=== PATIENT | female | born 1970 | race Hispanic/Latino ===

== ENCOUNTER → 2019-08-03 | Outpatient (CLI) | payer OTHER ==
[~2019-08-03] MED LIST: ATORVASTATIN CA10 MG PO; FAMOTIDINE20 MG PO; GLIMEPIRIDE2 MG PO; LEVOTHYROXINE75 MCG PO; LISINOPRIL-HCT1 EACH PO; jardiance PO
--- NOTE | 2019-08-03 14:21 | Diagnostic Imaging Report ---
EXAM: CT right foot WITHOUT contrast INDICATION: Pain. Fracture. Diabetes. Decreased range of motion. COMPARISON: None. TECHNIQUE: Pelvis were scanned utilizing a multidetector helical scanner from the iliac crest to the pubic symphysis without administration of IV contrast. Coronal and sagittal reformations were obtained. Routine protocol was performed. IV CONTRAST: None ORAL CONTRAST: None COMPLICATIONS: None RADIATION DOSE: Total DLP: 126.42 mGy*cm Estimated effective dose: (DLP x 0.015 x size factor) mSv CTDIvol has been reviewed. It is below the limits set by the Radiation Protocol Committee (RPC). Dose modulation, iterative reconstruction, and/or weight based adjustment of the mA/kV was utilized to reduce the radiation dose to as low as reasonably achievable. FINDINGS: Comminuted displaced intra-articular distal lateral cuboid bone fragment with several adjacent small bone fragments and soft tissue swelling. Comminuted intra-articular fracture involving the proximal fourth metatarsal with several adjacent small bone fragments and soft tissue swelling. Small avulsion-type fracture at the anterior dorsal aspect of the calcaneus best seen on sagittal reformatted image 22 and 23. Small posterior calcaneal bone spur. Small accessory navicular bone. Scattered degenerative change. No osseous erosion. No talar dome osteochondral lesion. Bipartite tibial sesamoid bone at the first metatarsophalangeal joint Moderate soft tissue edema about the foot. No radiopaque foreign body. Impression: Comminuted displaced intra-articular distal lateral cuboid bone fragment with several adjacent small bone fragments and soft tissue swelling. Comminuted intra-articular fracture involving the proximal fourth metatarsal with several adjacent small bone fragments and soft tissue swelling. Small avulsion-type fracture at the anterior dorsal aspect of the calcaneus Signed by: Dr. Michoacano Jordan M.D. on 08/03/2019 12:48 PM
== END ==
LOC: CT 11:35
PROVIDERS: ATTEND Podiatrist Foot & Ankle Surgery
DX: S92.341A Displaced fracture of fourth metatarsal bone, right foot, initial encounter for closed fracture (principal)

== ENCOUNTER 2019-08-08 20:26 | Emergency (ER) | payer OTHER ==
[~2019-08-08] VITALS: Ht 157.5 cm; Wt 99.8 kg
[2019-08-09] MEDS ORDERED: LISINOPRIL-HCT1 EACH PO (10:17)
[2019-08-09] MEDS ORDERED: GLIMEPIRIDE2 MG PO (10:18)
[2019-08-09] MEDS ORDERED: FAMOTIDINE20 MG PO (10:18)
[2019-08-09] MEDS ORDERED: LEVOTHYROXINE75 MCG PO (10:18)
[2019-08-09] MEDS ORDERED: ATORVASTATIN CA10 MG PO (10:19)
[2019-08-09] MEDS ORDERED: jardiance PO (10:19)
== END 2019-08-08 21:30 | disposition left against medical advice (07) ==
LOC: ER 20:26
DX: M79.671 Pain in right foot (principal)

== ENCOUNTER → 2019-08-10 | Day surgery (SDC) | payer OTHER ==
[2019-08-09 16:35] LABS: ANION GAP 13.7 mmol/L (8-16); BLOOD UREA NITROGEN 13 mg/dL (7-26); BUN/CREATININE RATIO 15 (6-25); CALCIUM 9.2 mg/dL (8.4-10.2); CARBON DIOXIDE 27 mmol/L (22-29); CHLORIDE 97 mmol/L (98-107); CREATININE, SERUM 0.87 mg/dL (0.57-1.11); EST GLOMERULAR FILTRATION RATE > 60 ML/MIN (60-); GLUCOSE 154 mg/dL (74-118); POTASSIUM 3.7 mmol/L (3.5-5.1); SODIUM 134 mmol/L (136-145)
[~2019-08-10] MED LIST changes: +BUPIVACAINE HCL 0.5% INJ 30 ML VIAL INJ ONE; +CLINDAMYCIN PHOS 900MG/ 50ML 50 ML IV ONE; +DEXAMETHASONE SOD PHOS INJ 4 MG/ML VIAL ONE; +FENTANYL CITRATE/PF 100MCG/2 ML INJ ONE; +HYDROMORPHONE 1MG/1ML INJ ONE; +HYDROMORPHONE 2MG/ML 2 MG/ML ML ONE; +IBUPROFEN 800MG/ 250ML 250 ML IV ONE; +KETOROLAC TROMETHAMINE 30 MG/ML VIAL ONE; +LIDOCAINE HCL 2% LOCAL INJ 5 ML SDV VIAL INJ ONE; +MIDAZOLAM HCL 2 MG/2 ML VIAL ONE; +ONDANSETRON HCL INJ 2MG/ML 2ML 2 MG/ML VIAL ONE; +PROPOFOL IV EMULSION 10 MG/ML 20 ML VIAL ONE; +SEVOFLURANE INHAL SOLN 250 ML PEN BTL ONE
--- OUTSIDE RECORDS SUMMARY | 2019-08-10 05:28 | XMS REPORT ---
Author [facility] Address Unknown Phone Unavailable Care Team Providers Care Flumer Name Role Phone Melissa ALBRECHT Unavailable Unavailable Payers Payer Name Policy Type Policy Number Effective Date Expiration Date Problems This patient has no known problems. Allergies, Adverse Reactions, Alerts Allergy Name Allergy Type Status Severity Reaction(s) Onset Date Inactive Date Treating Clinician Comments clavulanic acid DA Active U 2019-07-31 00:00:00 amoxicillin DA Active U 2019-07-31 00:00:00 Medications This patient has no known medications. Results Test Description Test Time Test Comments Text Results Atomic Results Result Comments CT FOOT RIGHT WO 2019-08-03 12:43:00 [place] [address] Patient Name: GINETTE MORRELL MR #: [id number] : 1970 Age/Sex: 49/F Req #: [id number] Adm Physician: Ordered by: Melissa ALBRECHT DPM Report #: [id number] Location: CT Room/Bed: Procedure: CT/CT FOOT RIGHT WO Exam Date: 08/03/19 Exam Time: 1220 REPORT STATUS: Signed EXAM: CT right foot WITHOUT contrast INDICATION: Pain. Fracture. Diabetes. Decreased range of motion. COMPARISON: None. TECHNIQUE: Pelvis were scanned utilizing a multidetector helical scanner from the iliac crest to the pubic symphysis without administration of IV contrast. Coronal and sagittal reformations were obtained. Routine protocol was performed. IV CONTRAST: None ORAL CONTRAST: None COMPLICATIONS: None RADIATION DOSE: Total DLP: 126.42 mGy*cm Estimated effective dose: (DLP x 0.015 x size factor) mSv CTDIvol has been reviewed. It is below the limits set by the Radiation Protocol Committee (RPC). Dose modulation, iterative reconstruction, and/or weight based adjustment of the mA/kV was utilized to reduce the radiation dose to as low as reasonably achievable. FINDINGS: Comminuted displaced intra- articular distal lateral cuboid bone fragment with several adjacent small bone fragments and soft tissue swelling. Comminuted intra-articular fracture involving the proximal fourth metatarsal with several adjacent small bone fragments and soft tissue swelling. Small avulsion-type fracture at the anterior dorsal aspect of the calcaneus best seen on sagittal reformatted image 22 and 23. Small posterior calcaneal bone spur. Small accessory navicular bone. Scattered degenerative change. No osseous erosion. No talar dome osteochondral lesion. Bipartite tibial sesamoid bone at the first metatarsophalangeal joint Moderate soft tissue edema about the foot. No radiopaque foreign body. Impression: Comminuted displaced intra- articular distal lateral cuboid bone fragment with several adjacent small bone fragments and soft tissue swelling. Comminuted intra-articular fracture involving the proximal fourth metatarsal with several adjacent small bone fragments and soft tissue swelling. Small avulsion-type fracture at the anterior dorsal aspect of the calcaneus Signed by: Dr. Michoacano Jordan M.D. on 08/03/2019 12:48 PM Dictated By: MICHOACANO JORDAN MD, MD 1248 Transcribed By: SAIRA on 08/03/19 1248 COPY TO: Melissa ALBRECHT DPM - XR FOOT 3 + V RT 2019-07-31 18:48:00 [facility] 1970 Age/S:49 /F [address] [facility] Unit#:[id number] Loc: [place] [address] Phys: Kiley Cardenas CRYOGENICS ENGINEER Dis Date: PHONE #: [phone] Status: REG ER FAX #: [phone] Exam Date: 07/31/2019 Reason: injury EXAMS: CPT CODE: [id number] XR FOOT 3 + V RT [address]22 CLINICAL HISTORY: injury TECHNIQUE: AP, oblique, and lateral views of the right foot COMPARISON: None FINDINGS: Nondisplaced oblique fracture through the proximal shaft of the fourth metatarsal. No intra-articular extension. Are also minimally displaced fractures involving the cuboid and lateral cuneiform that are appreciated best on the oblique radiograph. The remaining bones are unremarkable. IMPRESSION: Nondisplaced oblique fracture involving the proximal shaft of the fourth metatarsal and the right foot without intra-articular extension. Minimally displaced fractures of the lateral cuneiform and the cuboid. at 1848 Reported and signed by: Lance Dean MD CC: Kiley Cardenas NP Technologist: Anel Ayala RT(R)(CT) [facility] Data: 07/31/2019 (1847) [email or web address] Orig Print D/T: S: 07/31/2019 (5927) PAGE 1 Signed Report - XR TIBIA/FIBULA 2 V RT 2019-07-31 18:45:00 Name: GINETTE MORRELL : 1970 Age/S:49 /F [address] [facility] Unit#:[id number] Loc: [place] [address] Phys: Kiley Cardenas CRYOGENICS ENGINEER Dis Date: PHONE #: [phone] Status: REG ER FAX #: [phone] Exam Date: 07/31/2019 Reason: injury EXAMS: CPT CODE: [id number] XR TIBIA/FIBULA 2 V RT [address] CLINICAL HISTORY: injury TECHNIQUE: AP and lateral views of the right tibia/fibula COMPARISON: None FINDINGS: No acute fracture. Bony trabecular pattern is unremarkable. No cortical destruction or periosteal reaction. Knee and ankle joints do not appear dislocated. There appears to be swelling of the soft tissues overlying Hoffa's fat pad. Small patellar osteophyte is present. IMPRESSION: Soft tissue swelling overlying Hoffa's fat pad. Minimal degenerative changes of the right knee. Radiographically unremarkable right tibia and fibula. at 1845 Reported and signed by: Lance Dean MD CC: Kiley Cardenas NP Technologist: Anel Ayala RT(R)(CT) Trnscrpt Data: 07/31/2019 (1844) [email or web address] Orig Print D/T: S: 07/31/2019 (0594) PAGE 1 Signed Report
[2019-08-10 10:20] VITALS: BP 119/65
--- NOTE | 2019-08-10 13:43 | Operative Report ---
DATE OF PROCEDURE: 08/10/2019 SURGEON: Marian Polanco DPM PREOPERATIVE DIAGNOSES: 1. Right 4th metatarsal fracture. 2. Right cuboid fracture. POSTOPERATIVE DIAGNOSES: 1. Right 4th metatarsal fracture. 2. Right cuboid fracture. PLANNED PROCEDURES: 1. Right open reduction and internal fixation of 4th metatarsal fracture. 2. Right 4th met cuboid arthrotomy with excision of fracture fragment. SURGEON: Aldo Auguste DPM ([place]). TECHNOLOGY ASSISTANT: Marian Polanco DPM. ANESTHESIA: General with a postoperative block consisting of 15 mL of 0.5% Marcaine plain mixed with 1 mL of dexamethasone phosphate. HEMOSTASIS: Pneumatic thigh tourniquet set at 350 mmHg for a total time approximately 45 minutes. MATERIALS: Four [place] 2.3 mm cortical bone screws measuring between 18 mm and 14 mm. One 4-hole Med nonlocking neutralization plate. A 3-0 Vicryl and 4-0 nylon. PATHOLOGY: None. ESTIMATED BLOOD LOSS: Less than 10 mL. PROCEDURE NOTE: The patient was seen in the preoperative waiting room, where the correct procedure and site were identified. The patient was brought to the operating room and placed on the operating table in the supine position. General anesthesia was initiated. At this time, a well-padded pneumatic tourniquet was placed about the patient's right thigh. The right foot, ankle, and leg was then scrubbed, prepped, and draped in the usual aseptic manner. The right foot, ankle, and leg was exsanguinated with an Esmarch bandage and a pneumatic thigh tourniquet was inflated to 350 mmHg for a total time of approximately 45 minutes. Attention was directed to the dorsal lateral aspect of the patient's right foot with the use of intraoperative fluoroscopy. The incision site was placed over the 4th metatarsal base extending over the 4th metatarsal cuboid junction in a lazy-S fashion. The incision site was approximately 6 cm in length. The incision was carried through subcutaneous tissue them from deep or underlying structures. All vital and neurovascular structures were identified and retracted medially and laterally, and all bleeders were cauterized or ligated as deemed necessary. The dissection was carried down to the level of bone, where the 4th metatarsal base fracture was easily identified at the level of the proximal shaft. The dissection was carried down to allow for good visualization of the 4th metatarsal cuboid junction. There was noted to be intra-articular fragment to the anterior lateral aspect of the cuboid, which was excised and passed off the back table. All remaining bone fragments were removed utilizing a rongeur and flushed out with copious amounts of sterile saline and confirmed via intraoperative fluoroscopy. Next, utilizing techniques of AO fixation, one 4-hole [place] neutralization plate was placed across the 4th metatarsal fracture site with 2 holes proximal to the fracture and 2 holes distal to the fracture. It was temporarily fixated with K-wires and correct placement was determined with intraoperative fluoroscopy. Next, four 2.3 mm cortical bone screws measuring between 12 and 18 mm were placed. Fixation site was stable and confirmed via intraoperative fluoroscopy. The wound was then copiously irrigated with sterile saline. Capsule and deep tissue were reapproximated with 3-0 Vicryl, subcutaneous tissue with 3-0 Vicryl, and the skin was closed using a running interlocking stitch with 4-0 nylon. The incision site was then dressed with Adaptic, 4x4s, Kerlix, Unna boot, Webril, posterior splint, 4 inch Gutierrez wrap, and a 6-inch Gutierrez wrap. The patient tolerated the procedure and anesthesia well. The patient was transferred to the postoperative recovery unit with vital signs stable and vascular status intact. The patient was monitored there for a short period of time before being sent home with the following written and oral instructions: 1. Keep the dressing clean, dry, and intact. 2. The patient is to remain nonweightbearing to the right lower extremity to avoid any ambulation until being seen in the office. 3. The patient was given the office number and instructed to contact us if any problems arise. Dictated by Marian Polanco DPM S BETZY Harper ([place])/BESS /[id number]
== END | disposition home or self-care (01) ==
LOC: OR 05:24
PROVIDERS: ATTEND Podiatrist Foot & Ankle Surgery
DX: S92.341A Displaced fracture of fourth metatarsal bone, right foot, initial encounter for closed fracture (principal); S92.214A Nondisplaced fracture of cuboid bone of right foot, initial encounter for closed fracture; I10 Essential (primary) hypertension; E11.9 Type 2 diabetes mellitus without complications; K21.9 Gastro-esophageal reflux disease without esophagitis; E78.00 Pure hypercholesterolemia, unspecified; Z88.0 Allergy status to penicillin; Z88.8 Allergy status to other drugs, medicaments and biological substances; X58.XXXA Exposure to other specified factors, initial encounter; Z01.810 Encounter for preprocedural cardiovascular examination; Z01.812 Encounter for preprocedural laboratory examination; Z79.84 Long term (current) use of oral hypoglycemic drugs
CPT/HCPCS: 28485; 36415 ×2; 80048; 81025; 82948; 93005; C1713; J1100; J1170 ×2; J1885; J2001; J2250; J2405; J2704; J3010